=== PATIENT | male | born 1995 | race African-American/Black ===

== ENCOUNTER 2018-08-04 22:01 | Emergency (ER) | payer OTHER ==
[~2018-08-04] VITALS: Ht 190.5 cm; Wt 71.0 kg
[2018-08-04 22:30] VITALS: BP 118/68
== END 2018-08-05 02:00 | disposition left against medical advice (07) ==
LOC: ER 23:00
DX: Z53.21 Procedure and treatment not carried out due to patient leaving prior to being seen by health care provider (principal)